=== PATIENT | female | born 1970 | race Caucasian/White ===

== ENCOUNTER 2018-06-22 11:36 | Emergency (ER) | payer OTHER ==
[~2018-06-22] VITALS: Ht 175.3 cm; Wt 97.5 kg
[~2018-06-22 11:36] MED LIST: CIPRO500 MG PO; NORCO 5-325 TA1 EACH PO; ZOFRAN ODT4 MG PO
--- NOTE | 2018-06-23 23:18 | EKG ---
[facility] [address] [place], [place] [address] Signed Normal sinus rhythm Septal infarct , age undetermined Abnormal ECG Confirmed by RAUL JONES DO ([id number]) on 06/23/2018 11:18:26 PM Electronically Signed By: RAUL JONES DO 06/23/18 2318 PATIENT NAME: DERRELL JAY Electrocardiogram DATE OF : 66 PHYSICIAN: RAUL JONES DO REPORT #: [id number] REPORT IS CONFIDENTIAL AND NOT TO BE RELEASED WITHOUT AUTHORIZATION
== END 2018-06-22 13:35 | disposition home or self-care (01) ==
LOC: ED 11:36
DX: G62.9 Polyneuropathy, unspecified (principal); F17.200 Nicotine dependence, unspecified, uncomplicated
CPT/HCPCS: 71046; 80053; 84484; 85025; 93005; 93010; 99284-25; 99406

== ENCOUNTER 2020-12-28 16:50 | Emergency (ER) | payer OTHER ==
[~2020-12-28] VITALS: Ht 172.7 cm; Wt 97.1 kg
[~2020-12-28 16:50] MED LIST changes: +CALCIUM500 MG PO; +CRANBERRY200 MG PO; +ESSENTIAL DAIL1 EACH PO; +MIRENA1 EACH IY; +NEXIUM40 MG PO; +VITAMIN D-40010 MCG PO
[2020-12-28] MEDS ORDERED: INDAPAMIDE1.25 MG PO (17:19)
== END 2020-12-28 19:17 | disposition home or self-care (01) ==
LOC: ED 16:50
DX: L98.9 Disorder of the skin and subcutaneous tissue, unspecified (principal); F17.200 Nicotine dependence, unspecified, uncomplicated; Z88.8 Allergy status to other drugs, medicaments and biological substances; Z91.018 Allergy to other foods; Z79.899 Other long term (current) drug therapy
CPT/HCPCS: 70450; 99284-25

== ENCOUNTER 2021-01-27 01:32 | Inpatient (IN) | payer OTHER ==
[~2021-01-27] VITALS: Ht 172.7 cm; Wt 101.3 kg
[~2021-01-27 01:32] MED LIST changes: +DAILY VALUE1 EACH PO; -ESSENTIAL DAIL1 EACH PO; +INDAPAMIDE1.25 MG PO; +LEVOFLOXACIN500 MG PO; +TYLOPHEN500 MG PO
--- OUTSIDE RECORDS SUMMARY | 2021-01-27 01:40 | XMS ---
PreManage Notification: DERRELL JAY Security Perfumer Events No recent Security Events currently on file CRITERIA MET - [facility] - 2 Visits in 30 Days CARE PROVIDERS There are no care providers on record at this time. Clementina has no Care Guidelines for this patient. María [facility] (12 MO.) [facility] NOTE: Visits indicate total known visits. ED/UCC VISIT TRACKING (12 MO.) [facility]27[facility]2021 01[facility] COMPLAINT: - POSS UTI 01/25/2021 20:04 [facility] [place] TYPE: Emergency COMPLAINT: - COLD SYMPTOMS 12/28/2020 16:51 [facility] [place] TYPE: Emergency COMPLAINT: - HEADACHE DIAGNOSES: - Nicotine dependence, unspecified, uncomplicated - Other fdc (current) drug therapy - Allergy status to other drugs, medicaments and biological substances - Allergy to other foods - Headache, unspecified - Disorder of the skin and subcutaneous tissue, unspecified INPATIENT VISIT TRACKING (12 MO.) No inpatient visits to display in this time frame [email or web address]
--- NOTE | 2021-01-27 04:05 | NUR ---
PT ARRIVED TO ROOM 127 AT 0335 VIA STRETCHER. PT ABLE TO AMBULATE TO BATHROOM TO VOID AND THEN RETURNED TO BED. SHE IS ALERT/ORIENTED, REPORTS CHRONIC PAIN TO LOWER BACK AND ABDOMEN CURRENTLY AT 5/10 WHICH SHE STATES IS TOLERABLE AT THIS TIME. AFEBRILE. LUNGS CLEAR, RA. HR REGULAR. BOWEL TONES ACTIVE, DENIES NAUSEA. SKIN INTACT WITHOUT EDEMA. IV SITES INTACT AND PATENT. 1L BOLUS COMPLETED, MAINTANENCE FLUIDS STARTED AT 125ML/HR. PT PROVIDED WITH SNACKS PER REQUEST. BSC SET UP AT BEDSIDE PER PT REQUEST SINCE SHE FREQUENTLY NEEDS TO VOID AND IS STEADY ON FEET TO BE INDEPENDENT IN ROOM. CALL LIGHT WITHIN REACH, PT DENIES FURTHER NEEDS AT THIS TIME.
--- NOTE | 2021-01-27 06:10 | NUR ---
CHECKED IN ON PT WHO APPEARS TO BE SLEEPING AT THIS TIME. RESPIRATIONS EVEN AND UNLABORED, VITAL SIGNS STABLE. BSC EMPTIED OF 450ML YELLOW URINE.
--- NOTE | 2021-01-27 07:30 | NUR ---
REPORT RECIEVED. PATIENT IS LAYING IN BED, RESTING. NO DISTRESS NOTED.
--- NOTE | 2021-01-27 08:30 | NUR ---
ASSESSMENT DONE. C/O PAIN IN DIFFUSE ABD AND BACK PAIN. STATES THIS IS NORMAL FOR HER, BUT THE PAIN IS A LITTLE WORSE WITH THE INFECTION. IVF PATENT. UP TO COMMODE TO VOID, IS STABLE ON FEET, DENIES INCREASED PAIN WITH URINATION. C/O CHILLING, TEMP-99.9, WARM BLANKET GIVEN PER PATIENT REQUEST. TALKED WITH PATIENT ABOUT POC FOR DAY, INCICATES UNDERSTANDING.
--- NOTE | 2021-01-27 09:59 | NUR ---
dr. shabazz has been here to see patient. PATIENT SITTING UP IN BED WATCHING TV AND LOOKING AT PHONE. C/O GENERALIZED DISCOMFORT. WILL GIVE TYLENOL WHEN ORDERED.
--- NOTE | 2021-01-27 13:19 | NUR ---
TOOK LUNCH WELL. TYLENOL GIVEN EARLIER FOR OVER ALL COMFORT. PATIENT IS TALKATIVE. IVF CONTINUES TO INFUSE.
--- NOTE | 2021-01-27 14:30 | NUR ---
NAPPING, NO DISTRESS NOTED.
--- NOTE | 2021-01-27 16:00 | NUR ---
ASSESSMENT DONE, STATES SHE FEEL BETTER THIS AFTERNOON. DENIES CHILLING.
--- NOTE | 2021-01-27 19:01 | NUR ---
PT C/O GI UPSET. CALL TO DR AMARAL, HE STATES HE WILL ORDER MEDICATION.
--- NOTE | 2021-01-27 20:50 | NUR ---
SHIFT REPORT RECEIVED FROM SEDRICK SMITH. ASSESSMENT COMPLETED AT 2024: PT IS ALERT/ORIENTED, REPORTS 6/10 CHRONIC GENERALIZED PAIN, PRN TORADOL GIVEN. LUNGS CLEAR, RA. HR REGULAR. BOWEL TONES ACTIVE. SKIN GROSSLY INTACT. IV SITES INTACT AND PATENT, FLUIDS INFUSING WNL. BSC EMPTIED OF 450ML YELLOW URINE. PT PROVIDED WITH JELLO, PUDDING, AND APPLE JUICE PER REQUEST. 2049: PT MOVED TO MED-SURG ROOM 123 WITH ALL BELONGINGS. REPORT GIVEN TO SEDRICK HYDE.
--- NOTE | 2021-01-27 20:53 | NUR ---
PT TRANSFERED TO MEDICAL FLOOR VIA BED. VS OBTAINED, WNL. POC FOR THIS UNIT AND SHIFT DISCUSSED WITH PT. PT STATES UNDERSTANDING. PT ASSISTED TO BATHROOM. PT STATES SHE WAS PREVIOUSLY INDEPENDENT IN CCU, DISPLAYS APPROPRIATE TRANSFER SAFETY TO THIS SOFTWARE ENGINEER KERNEL. PT AGREES TO USE CALL LIGHT FOR NEEDS WILL OTHER JO USE BATHROOM INDEPENDENTLY. PT DENIES FURTHER NEEDS, QUESTIONS, OR CONCERNS AT THIS TIME. CALL LIGHT IN REACH. PHONE PLUGGED IN TO WALL CVIR TECH AND PLACED ON SIDE TABLE.
--- NOTE | 2021-01-27 22:00 | NUR ---
PT TRANSFER FROM CCU. REPORT RECEIVED FROM CCU RN. ORDERS RECEIVED. PT ALERT AND ORIENTED. DENIES PAIN OR NAUSEA. IV ABX INFUSING WNL. FRESH WATER PROVIDED. PT DENIES QUESTIONS OR CONCERNS AT THIS TIME. PT ORIENTED TO ROOM AND NURSE CALL LIGHT.
--- NOTE | 2021-01-28 00:40 | NUR ---
PT RESTING IN BED WITH EYES CLOSED. RESPIRATIONS EVEN. CALL LIGHT IN REACH.
--- NOTE | 2021-01-28 02:20 | NUR ---
VS AND I&O OBTAINED. PT REPORTS SHE IS RESTING WELL. NEW BAG IVF INFUSING. CRACKERS PROVIDED PER REQUEST. NO FURTHER NEEDS.
--- NOTE | 2021-01-28 06:15 | NUR ---
VS AND I&O COMPLETE. IV ABX INFUSING WNL. PT DENIES PAIN OR NAUSEA. FRESH WATER PROVIDED. BREAKFAST ORDERED. NO FURTHER NEEDS.
--- NOTE | 2021-01-28 07:35 | NUR ---
BEDSIDE REPORT FROM MARY ELLEN RN, PT RESTING IN BED, EYES CLOSED RR EVEN 18 BPM, NO DISTRESS NOTED AT THIS TIME.
--- NOTE | 2021-01-28 10:13 | NUR ---
PT BACK TO BED AFTER AMBULATING TO BATHROOM, SHE REPORTS MILD PAIN BUT DOES NOT WANT MEDICATIONS AT THIS TIME. SHE REPORTS BREAKFAST WENT WELL 100% CONSUMED NO NAUSEA. BM THIS AM, PT REFUSED FLU VAX AT THIS TIME. SHE IS COOPERATIVE WITH CARE, LAUGHING AND TALING ABOUT SHOPPING AND JOSE ANTONIO.
[2021-01-28] MEDS ORDERED: ACETAMINOPHEN500 M1 PO (10:36)
--- NOTE | 2021-01-28 10:39 | NUR ---
MED REC COMPLETED BY PHARMACY
--- NOTE | 2021-01-28 11:00 | NUR ---
PATIENT IN CHAIR WATCHING TV. VITALS AND I&O'S CHARTED. SHOWER LATER. CALL LIGHT IN REACH. NO FURTHER NEEDS AT THIS TIME.
--- NOTE | 2021-01-28 14:31 | NUR ---
PT UP TO AMBULATE IN HALLS, 2 LAPS OF MEDICAL SURGICAL UNIT, TOLERATED WELL. SHE SAID HER BACK WAS HURTING A LITTLE. WILL ADMINISTER TYLENOL PRN. PT ALERT AND ORIENTED. INDEPENDENT IN ROOM
--- NOTE | 2021-01-28 14:58 | NUR ---
PATIENT IN CHAIR AT THIS TIME. VITALS AND I&O'S CHARTED. CALL LIGHT IN REACH. NO FURTHER NEEDS AT THIS TIME.
--- NOTE | 2021-01-28 16:52 | NUR ---
PT HAS BEEN INDEPENDENT IN ROOM, AMBULATED IN HALLS TODAY 2 LAPS MED/SURG UNIT. SHE HAS AGREED TO TAKE TYLENOL PRN AFTER AMBULATING IN HALLS FOR BACK PAIN 07/02. SHE HAS HAD MULTIPLE BM TODAY, SHE HAS HAD GOOD APPETITE, WITH NO NAUSEA. AWAITING CULTURE RESULTS.
--- NOTE | 2021-01-28 18:32 | NUR ---
PATIENT SITTING IN CHAIR TALKING WITH VISITOR. VITALS AND I&O'S CHARTED. CALL LIGHT IN REACH. NO FURTHER NEEDS AT THIS TIME.
--- NOTE | 2021-01-28 18:38 | NUR ---
PT SIGNIFICANT OTHER IN ROOM, HE BROUGHT SHOWER SUPPLIES FOR HER TO SHOWER TONIGHT. PT REPORTS NO CONCERNS OR REQUESTS, WAITING FOR ABX TO COMPLETE SO SHE CAN BE S/L.
--- NOTE | 2021-01-28 19:51 | NUR ---
REPORT RECEIVED FROM DAY SHIFT RN. PT SITTING IN RECLINER ALERT AND ORIENTED. DENIES NEEDS AT THIS TIME. WHITE BOARD UPDATED. CALL LIGHT IN REACH.
--- NOTE | 2021-01-28 21:30 | NUR ---
EVENING ASSESSMENT COMPLETE. SCHEDULED MEDS ADMINISTERED PER EMAR. PRN NICOTINE LOZENGE PROVIDED PER PT REQUEST. PT DENIES PAIN OR NAUSEA. AFEBRILE. DENIES PAIN OR BURNING WITH URINATION. FRESH WATER AND SNACK PROVIDED. PT DENIES QUESITONS OR CONCERNS. CALL LIGHT IN REACH.
--- NOTE | 2021-01-29 00:24 | NUR ---
CALL LIGHT ANSWERED. PT REPORTS "RINGING IN HER EARS" THAT WAS INITIALLY VERY LOUD AND HAS NOW BEGAN TO FADE. VS WNL. PT DENIES FEELING DIZZY OR LIGHTHEADED. DENIES CHEST PAIN, PAIN, OR NAUSEA. PT AGREES TO NOTIFY THIS RN IF SYMPTOMS WORSEN.
--- NOTE | 2021-01-29 02:09 | NUR ---
PT UP TO BR INDEPENDENTLY. REPORTS "RINGING" IN EARS HAS STOPPED. NO NEEDS AT THIS TIME. CALL LIGHT IN REACH.
--- NOTE | 2021-01-29 04:09 | NUR ---
PT RESTING IN BED WITH EYES CLOSED. RESPIRATIONS EVEN. CALL LIGHT IN REACH.
--- NOTE | 2021-01-29 05:34 | NUR ---
LAB IN ROOM FOR MORNING DRAW. PT UP TO BR TO VOID INDEPENDENTLY. BACK TO BED, BRENDA WELL. VS AND I&O COMPLETE. IV ABX INFUSING WNL. PT REPORTS HEADACHE WHEN STANDING, DOES NOT WANT PRN FOR PAIN AT THIS TIME. WILL CALL WHEN READY. FRESH WATER PROVIDED. NO FURTHER NEEDS.
--- NOTE | 2021-01-29 06:14 | NUR ---
PT IV ALARMING, ADDED FLUIDS. COMPLAINED OF 7/10 HEADACHE/NECK DISCOMFORT. MEDICATED WITH PRN TYLENOL.
--- NOTE | 2021-01-29 07:34 | NUR ---
Report received from Merari DUBOSE. Pt sitting up in bed, states feeling nauseated at this time, PRN zofran administered. IV ABX infusing WNL. Cool cloth provided. Instructed to call with any needs, verbalizes understanding. Will continue plan of care.
--- NOTE | 2021-01-29 09:30 | NUR ---
Scheduled meds administered, assessment complete. IV abx complete, saline locked. Pt reports nausea subsided. VSS, I/Os complete. Pt states no pain, no needs.
[2021-01-29] MEDS ORDERED: NICOTINE LOZENGE4 MG BUCCAL (12:49)
[2021-01-29] MEDS ORDERED: CEFTRIAXONE2 G1 IV (12:49)
--- NOTE | 2021-01-29 15:24 | NUR ---
Extensive education provided to patient regarding midline care, followup appointments, labs. Pt verbalizes understanding and teaches back. IV removed, site WNL. Pt dresses self. All belongings returned. Midline WNL, supplies sent with patient for daily flushing. VSS, A+O.
== END 2021-01-29 15:10 | disposition home or self-care (01) | DRG 872 ==
LOC: ED 01:32 → CCU 01:34 → MS 10:03
PROVIDERS: ADMIT Internal Medicine; ATTEND Internal Medicine
DX: A41.59 Other Gram-negative sepsis (principal); N17.9 Acute kidney failure, unspecified; Q61.5 Medullary cystic kidney; N12 Tubulo-interstitial nephritis, not specified as acute or chronic; Z20.822 Contact with and (suspected) exposure to COVID-19; Z23 Encounter for immunization; I10 Essential (primary) hypertension; F17.210 Nicotine dependence, cigarettes, uncomplicated; Z90.49 Acquired absence of other specified parts of digestive tract; Z98.890 Other specified postprocedural states; Z91.018 Allergy to other foods; Z79.899 Other long term (current) drug therapy
CPT/HCPCS: 80048; 80053; 83605; 85025; 87040; 93306; 96365; 99285-25; C9803; G0378; J0692; J0696; J1650; J1885; J2405; J7121; U0003

== ENCOUNTER 2021-02-21 22:02 | Emergency (ER) | payer OTHER ==
[~2021-02-21] VITALS: Ht 172.7 cm; Wt 100.7 kg
[~2021-02-21 22:02] MED LIST changes: +ACETAMINOPHEN500 M1 PO; +CEFTRIAXONE2 G1 IV; +NICOTINE LOZENGE4 MG BUCCAL
--- OUTSIDE RECORDS SUMMARY | 2021-02-21 22:06 | XMS ---
PreManage Notification: DERRELL JAY Security Hand Hide Stretcher Events No recent Security Events currently on file CRITERIA MET - [facility] - 2 Visits in 30 Days - [facility] - Has Care Guidelines CARE PROVIDERS ANNIA RODAS Internal Medicine 01/28/2021-Current PHONE: Unknown Clementina has no Care Guidelines for this patient. Care History Medical/Surgical 01/28/2021 [facility] Patient saw PCP Dr. 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 Aaron Mares, urologist, ordered Cefdinir 300 mg on . Follow up visit with Dr. Walker on 02/27/2021. 01/28/2021 [facility] - Patient is currently established with [facility]. If patient is seen in the ED during business hours. Please contact CHWs at [facility]. Care Recommendation: If this patient has had 5 or more Emergency Department visits in the last 12 months.\T\nbsp; Patient will require education on the scope and purpose of the ED as an acute care provider not a Primary Care Provider and should not be utilized for chronic conditions.\T\nbsp; These are guidelines and the provider should exercise clinical judgment when providing care. E.D. VISIT COUNT (12 MO.) [address] [facility] TOTAL 4 NOTE: Visits indicate total known visits. ED/UCC VISIT TRACKING (12 MO.) 02/21/2021 22:03 [facility] TYPE: Emergency COMPLAINT: - DRESSING CHANGE 01/27/2021 01:33 [facility] TYPE: Emergency COMPLAINT: - POSS UTI 01/25/2021 20:04 [facility] [place] TYPE: Emergency COMPLAINT: - COLD SYMPTOMS DIAGNOSES: - Nicotine dependence, unspecified, uncomplicated - Acute kidney failure, unspecified - Urinary tract infection, site not specified - Allergy to other foods - Fever, unspecified - Severe sepsis without septic shock - Sepsis, unspecified organism - Other assisted (current) drug therapy - Essential (primary) hypertension - Allergy status to other drugs, medicaments and biological substances 12/28/2020 16:51 [facility] [place] TYPE: Emergency COMPLAINT: - HEADACHE DIAGNOSES: - Nicotine dependence, unspecified, uncomplicated - Other terminal manager (current) drug therapy - Allergy status to other drugs, medicaments and biological substances - Allergy to other foods - Headache, unspecified - Disorder of the skin and subcutaneous tissue, unspecified INPATIENT VISIT TRACKING (12 MO.) 01/27/2021 10:[address] [facility] [place] TYPE: Medical Surgical COMPLAINT: - SEPSIS DIAGNOSES: - Medullary cystic kidney - Nicotine dependence, cigarettes, uncomplicated - Acquired absence of other specified parts of digestive tract - Essential (primary) hypertension - Other Gram-negative sepsis - Other specified postprocedural states - Other specified postprocedural states - Sepsis, unspecified organism - Medullary cystic kidney - Allergy to other foods - Other assisted (current) drug therapy - Tubulo-interstitial nephritis, not specified as acute or chronic - Nicotine dependence, cigarettes, uncomplicated - Encounter for immunization - Severe sepsis without septic shock - Other Gram-negative sepsis - Allergy to other foods - Acquired absence of other specified parts of digestive tract - Acute kidney failure, unspecified - Encounter for immunization - Essential (primary) hypertension - Tubulo-interstitial nephritis, 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
== END 2021-02-21 23:47 | disposition home or self-care (01) ==
LOC: ED 22:02
DX: Z45.2 Encounter for adjustment and management of vascular access device (principal); I10 Essential (primary) hypertension; F17.200 Nicotine dependence, unspecified, uncomplicated; Z88.8 Allergy status to other drugs, medicaments and biological substances; Z91.018 Allergy to other foods; Z79.899 Other long term (current) drug therapy
CPT/HCPCS: 99283

== ENCOUNTER 2023-10-24 11:05 | Emergency (ER) | payer OTHER ==
[~2023-10-24] VITALS: Ht 172.7 cm; Wt 95.4 kg
[2023-10-24] MEDS ORDERED: ondansetron HCL 4 MG/2 ML VIAL IV PRN (11:15)
[2023-10-24] MEDS ORDERED: KETOROLAC TROMETHAMINE 15 MG/ML VIAL IV ONE (11:15)
[2023-10-24 11:18] LABS: BILIRUBIN, URINE NEGATIVE (negative); BLOOD/HGB, URINE NEGATIVE (Negative); KETONE, URINE NEGATIVE (Negative); LEUK ESTERASE, URINE SMALL (negative); NITRITE, URINE NEGATIVE (negative)
[2023-10-24] MEDS ORDERED: PHENTERMINE H37.5 M1 PO (11:19)
[2023-10-24] MEDS ORDERED: DOXYCYCLINE MON50 M1 PO (11:20)
[2023-10-24] MEDS ORDERED: SODIUM CHLORIDE 0.9% 1,000 ML IV PRN (11:30)
[2023-10-24 11:39] LABS: EPITHELIAL CELLS, URINE SQUAMOUS 2+ /lpf (0-1+); RED BLOOD CELLS, URINE 0-1 /hpf (0-5)
[2023-10-24 11:40] LABS: BASOPHILS 1.1 % (0-2); EOSINOPHILS 4.2 % (0-6); HEMATOCRIT 34.6 % (35.0-50.0); HEMOGLOBIN 11.1 g/dL (12.0-18.0); MCH 26.7 (27-36); MCHC 32.2 g/dl (30-36); MCV 82.9 fl (81-99); MONOCYTES 8.5 % (0-12); NEUTROPHILS 63.2 % (39-80); PLATELET COUNT 246 K/uL (140-440); RBC 4.18 M/ul (4.3-5.7); RDW 13.6 (10.5-15.0)
[2023-10-24 11:40] LABS: BACTERIA, URINE 1+ /hpf (negative); CASTS, URINE NONE SEEN \\lpf; COLLECTION TYPE, URINE CLEAN CATCH; CRYSTALS, URINE NONE SEEN (0-1+); REFLEX CULTURE, URINE No (No)
[2023-10-24 11:54] LABS: ALBUMIN 3.3 g/dL (3.4-5.0); ALBUMIN/GLOBULIN RATIO 0.85 (1.1-2.4); BILIRUBIN, TOTAL 0.4 ng/dL (0.2-1.0); BUN/CREATININE RATIO 14.65 (6.0-28.6); CALCIUM 9.6 mg/dL (8.5-10.1); CREATININE, SERUM 1.16 mg/dL (0.55-1.02); PROTEIN, TOTAL 7.2 g/dL (6.4-8.2)
[2023-10-24 12:50] VITALS: BP 136/86
== END 2023-10-24 12:51 | disposition home or self-care (01) ==
LOC: ED 11:05
PROVIDERS: Emergency Medicine
DX: R10.9 Unspecified abdominal pain (principal); N20.0 Calculus of kidney; I10 Essential (primary) hypertension; F17.200 Nicotine dependence, unspecified, uncomplicated; Z91.018 Allergy to other foods; Z79.899 Other long term (current) drug therapy
CPT/HCPCS: 36415; 74176; 80053; 81001; 83690; 85025; 96374; 96375; 99284-25; J1885; J2405; J7030

== ENCOUNTER 2024-10-30 07:03 | Emergency (ER) | payer OTHER ==
[~2024-10-30] VITALS: Ht 172.7 cm; Wt 91.0 kg
[~2024-10-30 07:03] MED LIST changes: +DOXYCYCLINE MON50 M1 PO; +PHENTERMINE H37.5 M1 PO
[2024-10-30 08:40] VITALS: BP 171/73
== END 2024-10-30 08:40 | disposition home or self-care (01) ==
LOC: ED 07:03
DX: S81.811A Laceration without foreign body, right lower leg, initial encounter (principal); W22.8XXA Striking against or struck by other objects, initial encounter; I10 Essential (primary) hypertension; F17.200 Nicotine dependence, unspecified, uncomplicated; Z91.018 Allergy to other foods; Z79.899 Other long term (current) drug therapy
CPT/HCPCS: 12001; 99282

== ENCOUNTER 2024-11-08 20:41 | Emergency (ER) | payer OTHER ==
[~2024-11-08] VITALS: Ht 172.7 cm; Wt 91.0 kg
[2024-11-08 21:06] VITALS: BP 167/91
== END 2024-11-08 21:06 | disposition home or self-care (01) ==
LOC: ED 20:41
DX: S81.811D Laceration without foreign body, right lower leg, subsequent encounter (principal)

== ENCOUNTER 2025-02-22 05:56 | Day surgery (SDC) | payer OTHER ==
[~2025-02-22] VITALS: Ht 172.7 cm; Wt 91.0 kg
[~2025-02-22 05:56] MED LIST changes: +AVAPRO150 MG PO; +BIOTIN5 MG PO; +LACTATED RINGER'S 1,000 ML IV SCH; +MACULAR HEALTH1 EACH PO; +MULTI VITAMIN1 EACH PO; +NEXIUM20 MG PO; +VITAMIN D3125 MC2 PO
[2025-02-22 06:17] VITALS: BP 128/80
[2025-02-22] MEDS ORDERED: IBLOOD GLUCOSE TEST STRIP 1 EA TEST VI PRN (07:00)
[2025-02-22] MEDS ORDERED: CEFAZOLIN SODIUM 2 GM in SODIUM CHLORIDE 0.9% 100 ML IV SCH (07:00)
[2025-02-22] MEDS ORDERED: LIDOCAINE HCL 1% 5 ML SDV INJ ONE (07:00)
[2025-02-22] MEDS ORDERED: LIDOCAINE HCL 2% 5 ML SDV ONE (07:22)
[2025-02-22] MEDS ORDERED: GLUCAGON,HUMAN RECOMBINANT 1 MG/ML VIAL ONE (07:57)
[2025-02-22] MEDS ORDERED: fentaNYL citrate 100 MCG/2 ML VIAL ONE (08:11)
[2025-02-22] MEDS ORDERED: PHENYLEPHRINE HCL IN 0.9% NACL 1 MG/10 ML SYR ONE (08:23)
--- NOTE | 2025-02-22 08:49 | NUR ---
02/22/25 0849 Dede Mclaughlin LE 0834: PT ARRIVES TO PACU NON AROUSAL. SHE IS CONNECTED TO MONITORS. REPORT RECEIVED FROM OR AND ACTIVITIES OFFICER. BP WAS LOW. PT WAS REPOSITIONED AND BP RESTARTED. LE 0838: PT SPONTANEOUSLY AROUSES, REPORTS NO PAIN OR NASUEA. C/O ITCHING NOSE DUE TO NC. LE 0841: BP STILL LOW, RAISED HEAD OF BED AND ENSURED FLUIDS WERE RUNNING. LE 0843: OXYGEN TURNED OFF, NC REMOVED FROM PT. PT IS DROWSY BUT EASILY AROUSABLE AND WILL WAKE UP AND CONVERSE WITH THIS RN.
[2025-02-22 09:01] VITALS: BP 125/77
== END 2025-02-22 09:15 | disposition home or self-care (01) ==
LOC: OPS 05:56 → DS 05:56 → OPS 07:30 → DS 07:30 → OPS 09:15
PROVIDERS: ATTEND Surgery
PROC: 0DBN8ZX Excision of Sigmoid Colon, Via Natural or Artificial Opening Endoscopic, Diagnostic (ICD-10-PCS; 2025-02-22)
PROC: 0DBM8ZX Excision of Descending Colon, Via Natural or Artificial Opening Endoscopic, Diagnostic (ICD-10-PCS; principal; 2025-02-22 07:30)
DX: Z12.11 Encounter for screening for malignant neoplasm of colon (principal); D12.4 Benign neoplasm of descending colon; D12.5 Benign neoplasm of sigmoid colon; K21.9 Gastro-esophageal reflux disease without esophagitis; I10 Essential (primary) hypertension; Z86.0101 Personal history of adenomatous and serrated colon polyps; Z87.891 Personal history of nicotine dependence; Z79.899 Other long term (current) drug therapy; Z90.49 Acquired absence of other specified parts of digestive tract
CPT/HCPCS: 00811; J0165; J0688; J1610; J2003; J2704; J3010; J7121